=== PATIENT | male | born 1955 | race Caucasian/White ===

== ENCOUNTER 2023-08-15 08:10 | Day surgery (SDC) | payer MEDICARE, BC ==
[~2023-08-15 08:10] MED LIST: Sodium Chloride 0.9% 10 ML Syringe FLUSH PRN
[2023-08-15] MEDS ORDERED: Propofol 200 MG/20 ML SDV IV ONE (08:11)
[2023-08-15] MEDS ORDERED: Midazolam 1 MG/ML 2 ML SDV IV ONE (08:11)
[2023-08-15] MEDS: Lactated Ringers 1,000 ML IV SCH (08:30)
== END 2023-08-15 11:55 | disposition home or self-care (01) ==
LOC: KA.SDS 08:10
PROVIDERS: ATTEND Family Medicine
DX: Z12.11 Encounter for screening for malignant neoplasm of colon (principal); D12.6 Benign neoplasm of colon, unspecified; K57.30 Diverticulosis of large intestine without perforation or abscess without bleeding; K64.8 Other hemorrhoids; G20.A1 Parkinson's disease without dyskinesia, without mention of fluctuations; E78.2 Mixed hyperlipidemia; N40.1 Benign prostatic hyperplasia with lower urinary tract symptoms; J32.4 Chronic pansinusitis; Z79.82 Long term (current) use of aspirin; Z79.899 Other long term (current) drug therapy
CPT/HCPCS: 00812; 88305; J2250; J2704; J7120